=== PATIENT | male | born 1990 | race Caucasian/White ===

== ENCOUNTER 2016-09-03 14:14 | Outpatient (CLI) | payer OTHER ==
--- NOTE | 2016-09-03 15:46 | Diagnostic Imaging Report ---
BRIAN GALVAN [facility] [id number] [facility] [address] [address] Report Submission Date: September 03, 2016 3:14:21 PM CDT Patient Study Name: JOSE CAMPOS Date: September 03, 2016 2:39:51 PM CDT Modality Type: CR Gender: M Description: LOWER EXTREMITY : 89 Institution: [facility] Physician: BRIAN GALVAN Left ankle 3 views Clinical history: Left ankle pain, history of fractures There is an old healed fracture of the distal left fibula, bony fragments are seen in good position. Single metallic staple is noted in the distal shaft of the left tibia. No acute fracture or joint effusion. Impression: An old healed fracture of the left fibula Metallic staple in the distal shaft of the left tibia 1 cm in diameter No acute process Electronically signed on September 03, 2016 3:14:21 PM CDT by: Americo KENNEDY
== END 2016-09-03 14:15 ==
LOC: RAD 14:14
PROVIDERS: ATTEND Physician Assistant
DX: M25.572 Pain in left ankle and joints of left foot (principal)
CPT/HCPCS: 73610

== ENCOUNTER 2017-09-02 09:28 | Outpatient (CLI) | payer OTHER | END 2017-09-02 09:30 | LOC: LABRHC 09:28 | PROVIDERS: ATTEND Physician Assistant | DX: J02.9 Acute pharyngitis, unspecified (principal) | CPT/HCPCS: 87070 ==

== ENCOUNTER 2018-04-10 12:22 | Emergency (ER) | payer OTHER ==
[2018-04-10] MEDS ORDERED: LIDOCAINE HCL 1% PF 50MG/5ML AMP (IM/SUTURE/PAIN CLINIC) IJ ONE (13:30)
--- NOTE | 2018-04-10 14:15 | ED Physician Documentation ---
General Adult - HISTORIAN Historian: patient - HPI Stated Complaint: laceration Chief Complaint: Laceration/Recheck/Suture Additional Information: Intro self as [employer] pt presents to the ED via POV c/o laceration to Right hand third finger. pt reports pain 05/14. no hemorrhage. pt denies other pain or injury. pt denies current chest pain, dyspnea, syncope/near syncope, headache, dizziness, visual disturbances, n/v/d, fever/chills, rash, sick contacts, dysuria, melena or hematochezia, bleeding or easy bruising, change in bowel or bladder function, no recent weight loss/gain, anxiety or depression. ROS Negative unless otherwise specified. - ROS CONST: no problems - PAST HX Past History: none Other History: none Surgeries/Procedures: none Immunizations: tetanus (greater than 5 years ago) Allergies/Adverse Reactions: Allergies Allergy/AdvReac Type Severity Reaction Status Date / Time No Known Drug Allergies Allergy Verified 04/10/18 13:17 Home Medications: Ambulatory Orders Medication Instructions Recorded Omeprazole 20 mg PO DAILY u2 09/03/16 - SOCIAL HX Smoking History: non-smoker Alcohol Use: none Drug Use: none - FAMILY HX Family History: No - VITAL SIGNS Vital Signs: Vital Signs Temp Pulse Resp BP Pulse Ox 98.2 F 82 16 106/64 98 04/10/18 19:22 04/10/18 19:22 04/10/18 19:22 04/10/18 19:22 04/10/18 19:22 - REVIEWED ASSESSMENTS Nursing Assessment Reviewed: Yes Vitals Reviewed: Yes Procedures Wound's Depth, Shape: superficial Wound Explored: clean Anesthesia: 1% Lidocaine (1ml) Volume of Anesthetic: 1ml Suture Size/Type: 4:0 Number of Sutures: 2 Layer Closure?: No Progress: 1 CM superficial LAceration to dorsal Right hand at 3rd digit MCP. tendon function intact. ED Results Lab/Radiology - Orders Orders: ED Orders Category Date Time Status Diph,Pertuss(Acell),Tet Vac/Pf [Adacel] Med 04/10/18 14:16 Discontinued 0.5 ml IM .ONCE ONE Lidocaine 1% 5ml(IM or SUTURE) [Xylocaine] Med 04/10/18 13:30 Discontinued 50 mg IJ NOW ONE General Adult Physical Exam - PHYSICAL EXAM GENERAL APPEARANCE: no distress EENT: eye inspection normal, ENT inspection normal, pharynx normal, no signs of dehydration, RAMAN, no nystagmus, TM's nml NECK: normal inspection, thyroid normal RESPIRATORY: no resp distress, chest non-tender, breath sounds normal CVS: equal pulses ABDOMEN: soft, no organomegaly, normal bowel sounds, no abdominal bruit, no distension BACK: normal inspection, no CVA tenderness SKIN: warm/dry, normal color, other (1 CM superficial LAceration to dorsal Right hand at 3rd digit MCP. tendon function intact. ) EXTREMITIES: non-tender, normal range of motion NEURO: oriented X3, motor nml, sensation nml, mood/affect nml Discharge Clincal Impression: Laceration Referrals: Primary Doctor,No [Primary Care Provider] - 2 Days Comments: Return to the emergency dept or to your primary care provider for suture removal in 5 days. keep covered with bandaid for 24 hours. after this you may leave open to air at night. covered during the day. after 24 hours may run water briefly over wound do not scrub, soak. do not put additional antibiotic ointment on the wound. Monitor and seek medical care for worsening symptoms or signs of infection: fever, chills, pus drainage, vomiting, increased swelling, redness, or any concern. -UNDERSTAND THAT THIS IS AN EMERGENCY EVALUATION FOR YOUR COMPLAINT TODAY AND BY NATURE IS LIMITED AND NOT A SUBSTITUTE FOR ONGOING MEDICAL CARE AND THAT EVEN THOUGH TEST RESULTS AND TREATMENT PLAN WERE EXPLAINED THERE MAY BE A NEED FOR ADDITIONAL TESTING TO FULLY DETERMINE THE EXTENT OF YOUR ILLNESS/INJURY/OR CONCERN SO YOU SHOULD CONTACT AND OR ESTABLISH WITH A PRIMARY CARE PROVIDER (OR REFERRAL DOCTOR IF APPLICABLE) FOR AN APPOINTMENT SOON POSSIBLE. Condition: Stable Disposition: 01 HOME, SELF-CARE Decision to Admit: NO Date of Decison to Admit: 04/10/18 Decision Time: 14:14
[2018-04-10] MEDS ORDERED: DIPH,PERTUSS(ACELL),TET VAC/PF 0.5 ML DISP.SYRIN IM ONE (14:16)
[2018-04-10 19:26] VITALS: BP 106/64
== END 2018-04-10 14:40 | disposition home or self-care (01) ==
LOC: ED 12:22
DX: S61.212A Laceration without foreign body of right middle finger without damage to nail, initial encounter (principal)
CPT/HCPCS: 12001; 90471; 90715; 99282